=== PATIENT | male | born 1945 | race Caucasian/White ===

== ENCOUNTER 2024-11-05 13:20 | Outpatient (CLI) | payer OTHER, SELFPAY ==
--- NOTE | ~2024-11-05 | CT_ITS ---
EXAMINATION: CT LE LT wo con DATE: 11/05/2024 13:57 INDICATION: Unilateral primary osteoarthritis, left knee. TECHNIQUE: Computed tomography (CT) of the left lower limb was performed without intravenous contrast . Automated exposure control and iterative reconstruction technique were employed. The dose-length pr oduct was 1956.10 mGy-cm. COMPARISON: Left knee radiographs 11/02/2024 FINDINGS: There is an old healed fracture of left acetabulum. There is moderate posttraumatic osteoar thritis of left hip. Left knee demonstrates varus angulation. There is moderate osteoarthritis of med ial compartment and mild osteoarthritis of lateral and patellofemoral compartments. There is a small knee joint effusion. IMPRESSION: 1. Moderate left knee osteoarthritis. 2. Small left knee joint effusion. Reviewed, dictated and finalized at location A. EAU ANALYST
--- OUTSIDE RECORDS SUMMARY | 2024-11-05 13:41 | XMS_ITS | Referral Summary ---
Author Organization [facility] [address] [facility] lto Address [address] [place] [address] Care Team Providers Care Wellfield Technician Name Role Phone Forrest Frazier MD Unavailable [phone] Perry aCdena MD Primary Care Provider [phone] Encounters Date Type Department Care Team Description 10/01/2024 Telephone [facility] Primary Care at [address] [phone] Perry Cadena MD 10/01/2024 Telephone [facility] Primary Care at [address] [place] [phone] Perry Cadena MD Medication Request 09/29/2024 Telephone [facility] Primary Care at [address] [place] [phone] Perry Cadena MD Medical Question/Miscellaneous 09/24/2024 Orders Only [facility] Primary Care at [address] [place] [phone] Perry Cadena MD Primary osteoarthritis of left knee (Primary Dx); Left knee pain, unspecified chronicity 09/24/2024 12:30 PM VICE PRESIDENT OF MARKETING Office Visit [facility] Primary Care at [address] [place] [phone] Perry Cadena MD Primary hypertension (Primary Dx); Primary osteoarthritis of left knee; Stage 3a chronic kidney disease (HCC); Class 1 obesity due to excess calories with serious comorbidity and body mass index (BMI) of 33.0 to 33.9 in adult; Chronic pain of left knee; Mixed hyperlipidemia; History of pancreatitis; Need for hepatitis B screening test; Prostate cancer screening from Last 3 Months Allergies No known active allergies Medications multivitamin capsuleIndicat ions:Vitamin Deficiency Prevention Take 1 capsule by mouth every morning Active acetaminophen 500 mg capsuleIndicat ions:Pain Take 2 capsules (1,000 mg total) by mouth every 6 (six) hours 100 tablet 4 Active methocarbamoL (ROBAXIN) 750 mg tabletIndicati ons:Muscle Spasm Take 1 tablet (750 mg total) by mouth 3 (three) times a day 90 tablet 4 Active senna-docusate (PERICOLACE) 8.6-50 mgIndications: constipation Take 1 tablet by mouth 2 (two) times a day 60 tablet 4 Active Additional Information Patient taking differently:1 tablet oralAs needed, constipation, Indications: constipation, Reported on 09/24/2024 amLODIPine (NORVASC) 10 mg tabletIndicati ons:hypertensi on Take 1 tablet (10 mg total) by mouth daily 90 tablet 3 5 10/22/19 26 Active atorvastatin (LIPITOR) 10 mg tabletIndicati ons:hyperlipid emia Take 1 tablet (10 mg total) by mouth daily 90 tablet 3 5 Active hydroCHLOROthi azide (HYDRODIURIL) 25 mg tabletIndicati ons:Edema Take 1 tablet (25 mg total) by mouth daily 90 tablet 3 5 10/22/19 26 Active atorvastatin (LIPITOR) 10 mg tabletIndicati ons:hyperlipid emia Take 1 tablet (10 mg total) by mouth daily 90 tablet 3 4 10/22/19 25 Discontin ued(Reord er) amLODIPine (NORVASC) 10 mg tabletIndicati ons:hypertensi on Take 1 tablet (10 mg total) by mouth daily 90 tablet 4 4 10/22/19 25 Discontin ued(Reord er) hydroCHLOROthi azide (HYDRODIURIL) 25 mg tabletIndicati ons:Edema Take 1 tablet (25 mg total) by mouth daily 90 tablet 4 4 10/22/19 25 Discontin ued(Reord er) Active Problems Problem Noted Date Diagnosed Date Stage 3a chronic kidney disease 09/24/2024 Assessment & Plan (09/24/2024 12:53 PM VICE PRESIDENT OF MARKETING): Monitor cmp Has been stable Consider switching hctz for another medication preferably alma/arb Chemistry Lab Results Component Value Date SODIUM 140 05/19/2024 POTASSIUM 4.0 05/19/2024 CHLORIDE 100 05/19/2024 CO2 27 05/19/2024 ANIONGAP 13 05/19/2024 BUNSER 28 (H) 05/19/2024 CREATININE 1.33 (H) 05/19/2024 GLUCOSE 101 05/19/2024 CALCIUM 9.9 05/19/2024 BILITOT 0.5 05/19/2024 ALBUMIN 4.6 05/19/2024 GFRNAA 55 (L) 05/19/2024 ALKPHOS 101 05/19/2024 AST 31 05/19/2024 ALT 17 05/19/2024 PHOS 3.2 03/07/2024 MAGNESIUM 2.2 03/07/2024 Gfr as above, cr and bun at [facility] baseline ckd stage 3 Medicare annual wellness visit, subsequent 05/19 Assessment & Plan (05/19/2024 9:04 AM CDT): Focus of exam is preventative in nature. Reviewed immunizations, reviewed sun/skin cancer screening. Reviewed colon/prostate cancer screening. Reviewd fall prevnetion. CONtinue therapy to strengthen the left lower extreeimty and left shoulder. Nondisplaced fracture of ant erior wall of left acetabulum with routine healing 05/19/2024 Assessment & Plan (05/19/2024 9:04 AM CDT): Released by [employer] COntinue f/u with therapy and HEP. Chronic left shoulder pain 03/05/2024 Assessment & Plan (03/10/2024 9:06 AM CDT): #L shoulder pain - chronic L rotator cuff arthropathy - plain films negative for fracture or dislocation - encourage PT, OT - Ordered robaxin and lidocaine patches - Outpatient follow up with Orthopedic surgery team PRN. Closed fracture of anterior column of left acetabulum with routine healing 03/04/2024 Assessment & Plan (03/11/2024 8:04 AM CDT): Mechanism: slip on boat ramp L ABC acetabular fracture - non op plan for trial of nonoperative management. Ok for diet today. OTS will continue to follow for mobilization. 03/06 - 03/08: Ambulating with well controlled pain, working with PT/OT; medically ready for discharge; pending placement - 03/09: WBAT in LLE with walker -Discharging home with PT/OT home health. Follow up with Dr. Horne Orthopedic trauma 04/14/2024. Class 1 obesity due to exces s calories with serious comorbidity and body mass index (BMI) of 33.0 to 33.9 in adult 03/23/2021 Assessment & Plan (09/24/2024 12:30 PM VICE PRESIDENT OF MARKETING): Wt Readings from Last 3 Encounters: 09/24/24 104.3 kg (230 lb) 07/09/24 102.5 kg (226 lb) 05/19/24 102.3 kg (225 lb 8 oz) BMI Readings from Last 3 Encounters: 09/24/24 33.00 kg/m 07/09/24 32.43 kg/m 05/19/24 31.45 kg/m Not at goal of bmi <30 Continue diet and exercise BMI Follow-up includes: nutrition counseling and exercise counseling. Assessment & Plan (05/16/2021 9:03 AM CDT): Discussed healthy diet and importance of regular physical activity. Assessment & Plan (03/23/2021 1:19 PM CDT): Reviewed need to lose weight, reviewed health benefits. Reviewed recommendations for daily intake & activity 20-30 minutes/day. Discussed healthy diet and importance of regular physical activity. Has lost 20# w/diet changes implemented by dtr. Has stopped drinking vodka daily. Prostate cancer screening 03/23/2021 Assessment & Plan (05/19/2024 9:03 AM CDT): PSA stable. No change, no increased work of urination. NO change and will follow response. Assessment & Plan (03/23/2021 1:20 PM CDT): PSA ordered; will contact with results when received. History of pancreatitis 03/23/2021 Assessment & Plan (09/24/2024 12:46 PM VICE PRESIDENT OF MARKETING): Hx of ETOH Assessment & Plan (03/23/2021 1:20 PM CDT): Awaiting results from [facility]. Reviewed d/c summary brought by dtr Dixie. Has stopped ETOH intake. Has improved diet greatly. dtr Dixie doing shopping. Pain 1/10 at worst now. Great improvement. Osteoarthritis of knee 02/15/2020 Overview (02/15/2020): Added automatically from request for surgery [id number] Assessment & Plan (09/24/2024 12:53 PM VICE PRESIDENT OF MARKETING): Tylenol/ ibuprofen prn, follow up ortho Referral placed Assessment & Plan (04/28/2020 9:03 AM CDT): R knee replacement 02/2020. Doing PT exercises as instructed. Cannot tell any decrease in pain as of yet. Has f/u appt w/Dr Oseguera 05/13/20 at [facility]. Colonoscopy refused 10/29/2019 Assessment & Plan (10/29/2019 11:06 AM VICE PRESIDENT OF MARKETING): Refuses colonoscopy. Agreeable to cologuard. Mixed hyperlipidemia 10/28/2019 Assessment & Plan (09/24/2024 12:45 PM VICE PRESIDENT OF MARKETING): Lab Results Component Value Date CHOL 196 05/19/2024 CHOL 178 11/26/2023 CHOL 177 05/21/2023 POCCHOL 147 10/29/2019 Lab Results Component Value Date HDL 80 05/19/2024 HDL 76 11/26/2023 HDL 71 05/21/2023 POCHDL 50 10/29/2019 Lab Results Component Value Date LDLCALC 100 05/19/2024 LDLCALC 87 11/26/2023 LDLCALC 88 05/21/2023 POCLDL 75 10/29/2019 Lab Results Component Value Date TRIG 92 05/19/2024 TRIG 74 11/26/2023 TRIG 92 05/21/2023 POCTRIG 116 10/29/2019 Lab Results Component Value Date POCCHDLR 3.0 10/29/2019 Lab Results Component Value Date POCNONHDL 98 10/29/2019 Lab Results Component Value Date POCCHLPL 147 10/29/2019 At goal Cont current regimen of lipitor 10 mg every day Assessment & Plan (05/19/2024 9:03 AM CDT): Stable on atorvastatin. NO new myalgias/arthalgias. Assessment & Plan (03/05/2024 3:18 PM CDT): #HLD - resumed lipitor Assessment & Plan (05/16/2021 9:00 AM CDT): 04/26/21 TC 192 HDL 44 LDL 123 HDL 44 TRG 123 LDL increased after stopping atorvastatin. Patient liver function significantly improved following cessation of alcohol. Will resume atorvastatin given ASCVD risk of 25%. Patient to repeat lipid panel and cmp in 3 months. Assessment & Plan (03/23/2021 1:17 PM CDT): 04/09/19 OG=554 HDL=65 TG=86 LDL=97 TC/HDL=2.8 10/29/19 ZI=259 HDL=50 UF=944 LDL=75 TC/HDL=3.0 10/27/20 KG=352 HDL=69 XA=415 LDL=98 TC/HDL=3.0 Atorvastatin 10mg temporarily on hold d/t pancreatitis & fatty liver found while at [facility] ([facility] dtr will resume his atorvastatin if hepatic functions WNL. Will recheck lipid panel at next appt (physical) Assessment & Plan (10/31/2020 8:57 AM VICE PRESIDENT OF MARKETING): 04/09/19 SU=279 HDL=65 TG=86 LDL=97 TC/HDL=2.8 10/29/19 QI=902 HDL=50 EY=472 LDL=75 TC/HDL=3.0 GLU=89 10/27/20 BD=433 HDL=69 TX=979 LDL=98 TC/HDL=3.0 Reviewed past lipid panels. LDL had climbed last year to upper end of normal. Reviewed labs from 10/27/20. Copy given to Mr Andrews. Patient should focus on limiting bad fats in the diet and using exercise as a way to improve the lipid status. Secondary prevention. Reviewed medications. Denies any statin Ses. Reviewed diet/exercise recommendations. Reviewed red flags. Assessment & Plan (04/27/2020 10:40 PM CDT): We will check labs and make adjustments to medications as needed. Patient should focus on limiting bad fats in the diet and using exercise as a way to improve the lipid status. Secondary prevention. Reviewed medications. Lipid panel ordered; will call w/results when rec'd. Denies any statin Ses. Reviewed diet/exercise recommendations. Reviewed red flags. Assessment & Plan (10/29/2019 11:05 AM VICE PRESIDENT OF MARKETING): 04/09/19 UQ=285 HDL=65 TG=86 LDL=97 TC/HDL=2.8 10/29/19 RJ=234 HDL=50 UE=151 LDL=75 TC/HDL=3.0 GLU=89 Copy of results as well as written explanations given to Mr Andrews. Improvement in total cholesterol & LDL since 03/2019. Patient should focus on limiting bad fats in the diet and using exercise as a way to improve the lipid status. Secondary prevention. Reviewed medications. Denies any statin Ses. Reviewed diet/exercise recommendations. Reviewed red flags. Primary hypertension 10/28/2019 Assessment & Plan (09/24/2024 12:30 PM VICE PRESIDENT OF MARKETING): BP Readings from Last 3 Encounters: 09/24/24 128/80 07/09/24 131/80 05/19/24 136/86 Vitals BP 128/80 (BP Location: Left arm, Patient Position: Sitting) Pulse 65 Resp 16 Ht 177.8 cm (5' 10 ) Wt 104.3 kg (230 lb) SpO2 98% BMI 33.00 kg/m Lab Results Component Value Date POTASSIUM 4.0 05/19/2024 At goal at this time Continue hctz 25 mg every day, norvac 10 mg every day Assessment & Plan (05/19/2024 9:03 AM CDT): Stable on amlopdine and HCTZ. No chest pains/pressures/palptiations. No increased work of breathing. Assessment & Plan (03/10/2024 9:07 AM CDT): #HTN - resumed amlo, holding HCTZ - says he no longer takes ASA 03/10 resuming HCTZ, tolerating a regular diet. Assessment & Plan (05/16/2021 9:01 AM CDT): Excellent control on BP today. Will continue to monitor. Assessment & Plan (03/23/2021 1:18 PM CDT): The blood pressure is under good control. Ideally it should be under 130/80. Continue medications without adjustment. Continue efforts to eat well (4-5 fruits and veggies) daily and exercise for about 30 min nearly every day. Watch salt intake, keeping to less than 2000mg per day. Limit alcohol. Include strategies to cope with stress. Labs ordered today; will contact w/results once received. Will change back to amlodipine/benazepril. Had been switched in hospital d/t elevated LFTs/fatty liver (awaiting lab results). Assessment & Plan (10/31/2020 8:57 AM VICE PRESIDENT OF MARKETING): The blood pressure is under good control. Ideally it should be under 130/80. Continue medications without adjustment. Continue efforts to eat well (4-5 fruits and veggies) daily and exercise for about 30 min nearly every day. Watch salt intake, keeping to less than 2000mg per day. Limit alcohol. Include strategies to cope with stress. Reviewed labs from 10/27/20. Copy given to Mr Andrews. Assessment & Plan (04/27/2020 10:40 PM CDT): The blood pressure is under good control. Ideally it should be under 130/80. Continue medications without adjustment. Continue efforts to eat well (4-5 fruits and veggies) daily and exercise for about 30 min nearly every day. Watch salt intake, keeping to less than 2000mg per day. Limit alcohol. Include strategies to cope with stress. Assessment & Plan (10/29/2019 11:05 AM VICE PRESIDENT OF MARKETING): No changes at this time. Does not check BP at home. The blood pressure is under good control. Ideally it should be under 130/80. Continue medications without adjustment. Continue efforts to eat well (4-5 fruits and veggies) daily and exercise for about 30 min nearly every day. Watch salt intake, keeping to less than 2000mg per day. Limit alcohol. Labs ordered today; will contact w/results once received. Chronic pain of both knees 07/15/2019 Assessment & Plan (05/16/2021 8:54 AM CDT): Right knee replacement 02/2020, has had ongoing pain. Does not want additional surgery for scar tissue removal. Continues home exercise and feels pain is manageable. Advised to follow up with Ortho. Assessment & Plan (10/29/2019 11:03 AM VICE PRESIDENT OF MARKETING): Sees Dr Steward yearly for knee injections. Reports R knee [id number]. Declines knee replacements. Takes aleve as needed. Resolved Problems Problem Noted Date Diagnosed Date Resolved Date Class 1 obesity due to exces s calories with serious comorbidity and body mass index (BMI) of 33.0 to 33.9 in adult 05/19/2024 09/24/2024 Assessment & Plan (05/19/2024 9:04 AM CDT): Encourage 150min/week aerobic exercise. Healthy food chcoies. Obesity (BMI 30.0-34.9) 05/19/2024/0 05/2025 Assessment & Plan (05/19/2024 9:05 AM CDT): As above. ALEXANDER (acute kidney injury) 03/05/2024 Assessment & Plan (03/08/2024 10:32 AM CDT): #ALEXANDER - Cr 1.37 - no documented history of CKD, although baseline Cr in last 1y 1.5-1.7 - 03/07: Cr 1.24 - 03/08: Cr 1.28 - stable and close to baseline, will stop checking labs Fall 03/05/2024 09/24/2024 Assessment & Plan (03/05/2024 3:18 PM CDT): #fall - mechanical, no LOC, did not strike head - no CT head or cspine currently indicated - no syncopal workup ordered Discharge planning issues 03/05/2024 Assessment & Plan (03/11/2024 10:18 AM CDT): 03/08: PT/OT recommending inpatient rehab. Patient is medically stable for discharge, SW/CM updated. Discharge pending facility acceptance 03/10: Patient is medically stable for discharge, SW/CM updated. Discharge pending insurance authorization Patient is medically stable for discharge, SW/CM updated. Discharge pending insurance appeal. 03/11 Discharging to SNF today. BMI 34.0-34.9,adult 10/31/2020 03/23/20 Assessment & Plan (10/31/2020 8:45 AM VICE PRESIDENT OF MARKETING): Reviewed need to lose weight, reviewed health benefits. Reviewed recommendations for daily intake & activity 20-30 minutes/day. Discussed healthy diet and importance of regular physical activity. BMI 30.0-30.9,adult 04/28/2020 10/31/19 Assessment & Plan (04/28/2020 9:01 AM CDT): Reviewed need to lose weight, reviewed health benefits. Reviewed recommendations for daily intake & activity 20-30 minutes/day. Discussed healthy diet and importance of regular physical activity. Has been increasing activity; doing PT exercises for recent R knee replacement. Aftercare following right kn ee joint replacement surgery 04/15/2020 09/24/2024 Encounter for medical examin mala to establish care 10/29/2019 04/27/2020 Assessment & Plan (10/29/2019 11:06 AM VICE PRESIDENT OF MARKETING): -reviewed screening guidelines: no family history of breast or colon cancer. -Colonoscopy refused. Agreeable to cologuard. -UTD on immunizations. -discussed diet/exercise: daily recommendations of 20-30 minutes physical activity daily, watch fat/sugar intake. -denies safety/violence. Wears seatbelt. Aware to not text/talk and drive. -does not smoke but does drink ETOH in small amt daily. -lives at home with supportive family (granddtr). Colon cancer screening 10/29/201910/31 Assessment & Plan (10/29/2019 11:06 AM VICE PRESIDENT OF MARKETING): Refuses colonoscopy; aware that it is gold standard for CRC screening. Agreeable to cologuard. Aware that cologuard kit will be mailed with directions. To call if no results rec'd 1-2 weeks after kit mailed back for completion of test. BMI 33.0-33.9,adult 10/29/2019 04/28/20 Assessment & Plan (10/29/2019 10:34 AM VICE PRESIDENT OF MARKETING): Reviewed need to lose weight, reviewed health benefits. Reviewed recommendations for daily intake & activity 20-30 minutes/day. Discussed healthy diet and importance of regular physical activity. Arthritis 10/28/2019 10/29/2019 Immunizations Immunization Administration Dates Next Due Influenza, Quad, Adjuvantate d, Intramuscular 07/04/2023,06/07/2022 Influenza, Quadrivalent, Hig h Dose, Preservative Free, Intrr 07/04/2021,07/02/2020 Influenza, Trivalent, Adjuva nted, Intramuscular 07/09/2019 Influenza, Trivalent, High D ose, Split, Preservative Free, Intramuscular 06/05/2024,07/04/2021,07/19/2016,07/12 Influenza, Trivalent, IM (MDV) 9,06/26/2018,07/20/2016,06/23 Influenza, Unspecified 05/19/2024(Deferr ed: Patient Refused),11/26/2023(Deferred: Patient Refused),05/21/2023(Deferred: Patient Refused),09/16/2022(Deferred: Patient Refused),09/16/2022(Deferred: Patient Refused),06/20/2020,06/23/2014 Pfizer SARS-CoV-2 Monovalent Vaccination (12+ Yrs) PURPLE 06/09/2021,10/17/2020,10/17/2020 Pneumococcal Conjugate PCV 13 10/08/2017 Pneumococcal Conjugate Pcv20 06/05/2024 Pneumococcal Polysaccharide PPV23 04/09/2019,09/2008 Tetanus Toxoid, Unspecified 11/14/2010 ZOSTER LIVE 06/29/2011 ZOSTER Recombinant 03/28/2021,10/15/2019 Social History Tobacco Use Types Packs/Day Years Used Date Smoking Tobacco: Never Smokeless Tobacco: Never Tobacco Cessation:Counseling Given: Not Answered Alcohol Use Standard Drinks/Week Comments Yes 28 (1 standard drink = 0.6 oz pu re alcohol) very little OASIS D0700: Social Isolation Answer Da te Recorded Frequency of experiencing loneliness or isolatio n Never 04/11/2024 OASIS A1250: Transportation Answer Date Recorded Lack of Transportation (Medical) No 04/11/2024 Lack of Transportation (Non-Medical) No 04/11/2024 Patient Unable or Declines to Respond No 04/11/2024 OASIS B1300: Health Literacy Answer Faustino e Recorded Frequency of needing help to read materials from doctor or pharmacy Never 04/11/2024 [facility] Utilities Answer Date Recorded In the past 12 months has e [employer], gas, oil, or water [employer] threatened to shut off services in your home? No 03/12/2024 Humiliation, Afraid, Rape, and Kick questionnair e Answer Date Recorded Within the last year, have y ou been afraid of your partner or ex-partner? No 03/04/2024 Within the last year, have y ou been humiliated or emotionally abused in other ways by your partner or ex-partner? No Within the last year, have y ou been kicked, hit, slapped, or otherwise physically hurt by your partner or ex-partner? No 03/04/2024 Within the last year, have y ou been raped or forced to have any kind of sexual activity by your partner or ex-partner? No 03/04/2024 Social Connection and Isolat ion Panel [NHANES] Answer Date Recorded In a typical week, how many times do you talk on the phone with family, friends, or neighbors? Three times a week 03/12/2024 How often do you get togethe r with friends or relatives? Three times a week 03/12/2024 How often do you attend chur ch or jewish services? More than 4 times per year 03/12/2024 Do you belong to any clubs o r organizations such as yazidism groups, unions, fraternal or athletic groups, or school groups? Yes 03/12/2024 How often do you attend meet ings of the clubs or organizations you belong to? More than 4 times per year 03/12/2024 Are you , , di vorced, , never , or living with a partner? 03/12/2024 AUDIT-C Answer Date Recorded Q1: How often do you have a drink containing alcohol? 4 or more times a week 03/04/2024 Q2: How many drinks containi ng alcohol do you have on a typical day when you are drinking? 1 or 2 Q3: How often do you have si x or more drinks on one occasion? Never 03/04/2024 Overall Financial Resource Strain (CARDIA) Answe r Date Recorded How hard is it for you to pa y for the very basics like food, housing, medical care, and heating? Not very hard 03/12/2024 PHQ-2 Answer Date Recorded PHQ-2 Total Score (If total score is 3 or more points, staff should administer the PHQ-9) 0 09/24/2024 [facility] of Occupat ional Health - Occupational Stress Questionnaire Answer Date Recorded Do you feel stress - tense, restless, nervous, or anxious, or unable to sleep at night because your mind is troubled all the time - these days? To some extent 03/04/2024 Exercise Vital Sign Answer Date Recorde d On average, how many days pe r week do you engage in moderate to strenuous exercise (like a brisk walk)? 7 days 03/04/2024 On average, how many minutes do you engage in exercise at this level? 120 min 03/04/2024 Hunger Vital Sign Answer Date Recorded Within the past 12 months, y ou worried that your food would run out before you got the money to buy more. Never true 03/12/20 24 Within the past 12 months, t he food you bought just didn't last and you didn't have money to get more. Never true 03/12/2024 PRAPARE - Transportation Answer Date Re corded In the past 12 months, has l ack of transportation kept you from medical appointments or from getting medications? No 02/15 In the past 12 months, has l ack of transportation kept you from meetings, work, or from getting things needed for daily living? No 03/12/2024 Housing Stability Vital Sign Answer Faustino e Recorded In the last 12 months, was t here a time when you were not able to pay the mortgage or rent on time? No 03/12/2024 In the past 12 months, how m any times have you moved where you were living? 0 03/12/2024 At any time in the past 12 m [facility], were you homeless or living in a usp (including now)? No 03/12/2024 Personal Safety Answer Date Recorded Have you ever been in or are you currently in a harmful physical or emotional relationship or is someone making you feel afraid or unsafe? Denies 03/05/2024 Sex and Gender Information Value Date Recorded Sex Assigned at Not on file Legal Sex Male 1:36 AM VICE PRESIDENT OF MARKETING Gender Identity Not on file Sexual Orientation Not on file Last Filed Vital Signs Vital Sign Reading Time Taken Comments Blood Pressure 128/80 09/24/2024 12:23 PM [employer]ICE PRESIDENT [employer]ETING Pulse 65 09/24/2024 12:23 PM [employer]ICE [employer]ETING Temperature 36.7 C (98.1 F) 05/19/2024 8:39 AM CDT Respiratory Rate 16 09/24/2024 12:23 PM [employer]ICE PRESIDENT [employer]ETING Oxygen Saturation 98% 09/24/2024 12:23 PM VICE PRESIDENT OF MARKETING Inhaled Oxygen Concentration - - Weight 104.3 kg (230 lb) 09/24/2024 12:23 PM VICE PRESIDENT OF MARKETING Height 177.8 cm (5' 10 ) 09/24/2024 12:23 PM [employer]ICE PRESIDENT [employer] MARKETING Body Mass Index 33 09/24/2024 12:23 PM VICE PRESIDENT OF MARKETING Plan of Treatment Not on file Goals Goal Patient Goal Type Associated Problems Recent Progress Patient-Stated? Author TOAN General Goal - Patient establishes care with [facility] Care Management On track(2023 1:10 PM CDT) Trixie Burt, RN Note: Problem: Lack of [facility] communication Interventions: - Provide coordination between [facility] company and patient. - Ensure [facility] has appropriate referral and orders to establish care with patient. - Follow up with patient to ensure initial visit was completed by [facility] and that a [facility] plan has been started. [facility] [place], CHERISE Note: Patient will establish a comfort-function goal and identify the pain level that will allow the patient to perform desired activities and achieve an acceptable quality of life. Medical Devices Implanted Type Area Hired Worker Device Identifier Shelf Expiration Date Model / Serial / Lot [employer] [id number] Persona 12mm Cruciate Retain Knee 8-11 Insert Articular Vivacit-E Latex Free - [id number] Implanted:Qty: 1 on 03/09/2020 by Carter Oseguera MD at [facility] Right: Knee [employer] [id number] 2 06/15/2023 [id number] / / [id number] [employer] [id number] Persona 2 Peg Knee Right H Baseplate Tibial Trabecular Metal - [id number] Implanted:Qty: 1 on 03/09/2020 by Carter Oseguera MD at [facility] Right: Knee [employer] [id number] 2 05/16/2029 [id number] / / [id number] [employer] [id number] Persona Cruciate Retaining Knee Right 9 Standard Component - [id number] Implanted:Qty: 1 on 03/09/2020 by Carter Oseguera MD at [facility] Right: Knee [employer] [id number] 2 11/13/2029 [id number] / / [id number] Insurance HEALTHCARE [facility] [place] [address] HEALTHCARE Advance Directives For more information, please contact: [phone] * Full Code (Latest Code Status on File) Date Activated Date Inactivated Comments 03/04/2024 8:27 PM 03/11/2024 4:18 PM * Full Code Date Activated Date Inactivated Comments 03/09/2020 6:13 PM 03/10/2020 4:08 PM Care Teams Wellfield Technician Relationship Specialty Start Date End Date Forrest Frazier MD [address] [address] PCP - Essence Attributed PCP 09/16/19 Perry Cadena MD [address] [address] PCP - General Family Medicine 09/24/24
--- OUTSIDE RECORDS SUMMARY | 2024-11-05 13:41 | XMS_ITS | Patient Health Summary ---
Author Organization [facility] Address [address] [place] [address] Care Team Providers Care Appian Bpm Developer Name Role Phone Florentin Antony MD Primary Care Provider [phone] Note from [facility],non-owned Affiliates and Associated Physician Practices is amultiple site organization consisting of ambulatory clinics and hospital sitesin [place], [place] and [place]. This disclosure is being madepursuant to the Care Everywhere program and may not contain all information available regarding this patient. Last updated 18.[facility] Allergies No known active allergies Medications * Be aware that medications may not be up to date on this document. Alwaysverify current medications with the patient. * atorvastatin (LIPITOR) 10 MG tablet(Started 10/02/2017) Take 10 mg by mouth * amLODIPine besy-benazepril 10-40 MG(Started 01/15/2018) TAKE 1 CAPSULE BY MOUTH EVERY DAY * aspirin (ASPIRIN) 325 MG tablet Take 325 mg by mouth once daily * benzonatate (TESSALON) 200 MG capsule(Started 09/13/2018) Take 1 capsule by mouth 3 times daily as needed for Cough Social History Tobacco Use Types Packs/Day Years Used Date Smoking Tobacco: Never Assessed Sex and Gender Information Value Date Recorded Sex Assigned at Not on file Gender Identity Not on file Sexual Orientation Not on file Last Filed Vital Signs Vital Sign Reading Time Taken Comments Blood Pressure 140/82 09/13/2018 11:21 AM DIETITIAN CONSULTANT Pulse 89 09/13/2018 11:21 AM DIETITIAN CONSULTANT Temperature 37.2 C (99 F) 09/13/2018 11:21 AM DIETITIAN CONSULTANT Respiratory Rate - - Oxygen Saturation 96% 09/13/2018 11:21 AM DIETITIAN CONSULTANT Inhaled Oxygen Concentration - - Weight 110.7 kg (244 lb) 09/13/2018 11:21 AM DIETITIAN CONSULTANT Height 180.3 cm (5' 11 ) 09/13/2018 11:21 AM DIETITIAN CONSULTANT Body Mass Index 34.03 09/13/2018 11:21 AM DIETITIAN CONSULTANT Care Teams Appian Bpm Developer Relationship Specialty Start Date End Date Florentin Antony MD PCP - General Internal Medicine 09/13/18
--- OUTSIDE RECORDS SUMMARY | 2024-11-05 13:41 | XMS_ITS | Referral Summary ---
Author Organization [facility] Address [address] [place] [address] Care Team Providers Care Keno Manager Name Role Phone Florentin Antony MD Primary Care Provider [phone] Source Comments [facility],non-owned Affiliates and Associated Physician Practices is amultiple site organization consisting of ambulatory clinics and hospital sitesin [place], [place], [place]. This disclosure is being madepursuant to the Care Everywhere program and may not contain all information available regarding this patient. Last updated 18.[facility] Allergies No known active allergies Medications * Be aware that medications may not be up to date on this document. Alwaysverify current medications with the patient. Medication Sig Dispensed Refills Start Date End Date Status atorvastatin (LIPITOR) 10 MG tablet Take 10 mg by mouth 10/02/2017 Active amLODIPine besy-benazepril 10-40 MG TAKE 1 CAPSULE BY MOUTH EVERY DAY 01/15/2018 Active aspirin (ASPIRIN) 325 MG tablet Take 325 mg by mouth once daily Active benzonatate (TESSALON) 200 MG capsule Take 1 capsule by mouth 3 times daily as needed for Cough 30 capsule 09/13/2018 Active Social History Tobacco Use Types Packs/Day Years Used Date Smoking Tobacco: Never Assessed Sex and Gender Information Value Date Recorded Sex Assigned at Not on file Gender Identity Not on file Sexual Orientation Not on file Last Filed Vital Signs Vital Sign Reading Time Taken Comments Blood Pressure 140/82 09/13/2018 11:21 AM SEISMOGRAPH RECORDER Pulse 89 09/13/2018 11:21 AM SEISMOGRAPH RECORDER Temperature 37.2 C (99 F) 09/13/2018 11:21 AM SEISMOGRAPH RECORDER Respiratory Rate - - Oxygen Saturation 96% 09/13/2018 11:21 AM SEISMOGRAPH RECORDER Inhaled Oxygen Concentration - - Weight 110.7 kg (244 lb) 09/13/2018 11:21 AM SEISMOGRAPH RECORDER Height 180.3 cm (5' 11 ) 09/13/2018 11:21 AM SEISMOGRAPH RECORDER Body Mass Index 34.03 09/13/2018 11:21 AM SEISMOGRAPH RECORDER Plan of Treatment Not on file Care Teams Keno Manager Relationship Specialty Start Date End Date Florentin Antony MD PCP - General Internal Medicine 09/13/18
--- OUTSIDE RECORDS SUMMARY | 2024-11-05 13:41 | XMS_ITS | Clinical Summary ---
Author Organization [facility] Address [address] [address] Phone Care Team Providers Care Dextrine Mixer Name Role Phone Forrest Frazier MD Primary Care Provider [phone] [phone] Allergies No known active allergies Medications aspirin 325 MG Tablet Take 325 mg by mouth. Active fluticasone (FLONASE) 50 MCG/ACT Suspension 1-2 Sprays by Nasal route daily. Use in each nostril as directed. 1 Bottle 1 02/27/2019 Active atorvastatin (LIPITOR) 10 MG Tablet TAKE 1 TABLET BY MOUTH EVERY DAY 90 Tab 1 09/15/2019 Active amLODIPine Besy-Benazepril HCl 10-40 MG Capsule Take 1 Cap by mouth daily. 30 Cap 03/29/2020 Active Active Problems Problem Noted Date Diagnosed Date Hypertension, essential Hyperlipidemia Arthritis Immunizations Immunization Administration Dates Next Due Covid-19, Mrna, Lnp-s, Pf, 3 0 Mcg/0.3 Ml Dose (Clearwave) 11/14/2020,10/17/2020 Influenza Vaccine greater than 3 yrs 06/29/2019, 06/26/2018,07/20/2016 Influenza, Seasonal, Injectable, Undefined 06/23 Influenza, high-dose, trivalent, PF 07/12/2015 Pneumococcal Vaccine - 13 Valent 10/08/2017 Pneumococcal Vaccine Adult - 23 Valent 9,04/16/2009 Tetanus Toxoid, Unspecified Formulation 11/15/19 11 Zoster Vaccine Recombinant 10/15/2019 Zoster Vaccine, live 06/29/2011 Family History Medical History Relation Name Comments Heart Attack Father Hypertension Mother Relation Name Status Comments Father Mother Social History Tobacco Use Types Packs/Day Years Used Date Smoking Tobacco: Never Smokeless Tobacco: Never Tobacco Cessation:Counseling Given: Yes Alcohol Use Standard Drinks/Week Comments Yes 0 (1 standard drink = 0.6 oz pur e alcohol) PHQ-2 Answer Date Recorded PHQ-2 Score 0 06/02/2019 Sex and Gender Information Value Date Recorded Sex Assigned at Not on file Legal Sex Male 10:26 PM CDT Gender Identity Not on file Sexual Orientation Not on file Last Filed Vital Signs Vital Sign Reading Time Taken Comments Blood Pressure 112/78 04/09/2019 9:40 AM CDT Pulse 71 04/09/2019 9:40 AM CDT Temperature 37.1 C (98.7 F) 04/09/2019 9:40 AM CDT Respiratory Rate 18 02/27/2019 3:22 PM CDT Oxygen Saturation 97% 04/09/2019 9:40 AM CDT Inhaled Oxygen Concentration - - Weight 110.7 kg (244 lb) 04/09/2019 9:40 AM CDT Height 180.3 cm (5' 11 ) 04/09/2019 9:40 AM CDT Body Mass Index 34.03 04/09/2019 9:40 AM CDT Plan of Treatment Health Maintenance Due Date Last Done Comments Hepatitis C Virus (HCV) Screening 1945 TdaP Immunization 1945 Zoster Immunization (3 of 3) 12/10/2019 10/15/2019, 06/29/2011 Respiratory Syncytial Virus (RSV) Immunization (Adult) (1 - 1-dose 75+ series) 2021 Influenza Immunization (#1) 05/17/202406/16, 06/20/2020, 07/09/2019, Additional history exists SARS-COV-2 Immunization (2023- season) 2024 06/09/2021, 11/14/2020, 10/17/2020 Pneumococcal Immunization (50+ years) Completed 04/09/2019, 10/08/2017, 04/16/2009 Pneumococcal Immunization Combined Discontinued 04/09/2019, 10/08/2017, 04/16/2009 Hepatitis B Immunization Aged Out No longer eligible based on patient's age to complete this topic Meningococcal Immunization (ACWY) Aged Out No longer eligible based on patient's age to complete this topic Rotavirus Immunization Aged Out No lo nger eligible based on patient's age to complete this topic Care Teams Dextrine Mixer Relationship Specialty Start Date End [place] [address] PCP - General Internal Medicine 03/06/21
--- OUTSIDE RECORDS SUMMARY | 2024-11-05 13:41 | XMS_ITS | Clinical Summary ---
Author Organization [facility] [employer] [facility] [employer] Address [address] [place] [place] [address] Care Team Providers Care Director Of Primary Name Role Phone Florentin Antony MD Primary Care Provider [phone] [facility] [employer],non-owned Affiliates and Associated Physician Practices is amultiple site organization consisting of ambulatory clinics and hospital sitesin [place], [place], [place] and [place]. This disclosure is being madepursuant to the Care Everywhere program and may not contain all information available regarding this patient. Last updated 18.[employer] [facility] [employer] [facility] [employer] Allergies No known active allergies Medications * [...] Comments Blood Pressure 140/82 09/13/2018 11:21 AM SPOUTER Pulse 89 09/13/2018 11:21 AM SPOUTER Temperature 37.2 C (99 F) 09/13/2018 11:21 AM SPOUTER Respiratory Rate - - Oxygen Saturation 96% 09/13/2018 11:21 AM SPOUTER Inhaled Oxygen Concentration - - Weight 110.7 kg (244 lb) 09/13/2018 11:21 AM SPOUTER Height 180.3 cm (5' 11 ) 09/13/2018 11:21 AM SPOUTER Body Mass Index 34.03 09/13/2018 11:21 AM SPOUTER Plan of Treatment Health Maintenance Due Date Last Done Comments HEPATITIS C SCREENING 04/24/1963 DTAP/TDAP/TD VACCINES (1 - Tdap) 1965 PNEUMOCOCCAL VACCINE 50+ (1 of 1 - PCV) 1996 ZOSTER VACCINE (1 of 2) 1996 Respiratory Syncytial Virus (RSV) Vaccine Pt: or over 60 yrs (1 - 1-dose 75+ series) 2021 COVID-19 VACCINE ( - 2023-2 5 season) 2024 INFLUENZA VACCINE (#1) 2024 8, 07/20/2016, 07/12/2015 DEPRESSION SCREENING 09/16/2024 HEPATITIS B VACCINE Aged Out No longe r eligible based on patient's age to complete this topic HIB VACCINE Aged Out No longer eligi ble based on patient's age to complete this topic HPV VACCINE Aged Out No longer eligi ble based on patient's age to complete this topic MENINGOCOCCAL (Group B) VACCINE Aged Out No longer eligible b ased on patient's age to complete this topic MENINGOCOCCAL VACCINE Aged Out No gabbi fatoumata eligible based on patient's age to complete this topic Care Teams Director Of Primary Relationship Specialty Start Date End Date Florentin Antony MD PCP - General Internal Medicine 09/13/18
--- OUTSIDE RECORDS SUMMARY | 2024-11-05 13:41 | XMS_ITS | Clinical Summary ---
Author Organization [facility] [place] [address] [facility] lto Address [address] [place] [address] Care Team Providers Care Emergency Dispatch Operator Name Role Phone Forrest Frazier MD Unavailable [phone] Perry Cadena MD Primary Care Provider Allergies No known active allergies Medications multivitamin [...] 09/24/2024 Assessment & Plan (09/24/2024 12:53 PM GRIP WRAPPER): Monitor cmp Has been stable Consider switching [...] Gfr as above, cr and bun at [facility] baseline ckd stage 3 Medicare annual [...] Plan (05/19/2024 9:04 AM CDT): Released by [employer] COntinue f/u with therapy and HEP. Chronic [...] 03/23/2021 Assessment & Plan (09/24/2024 12:30 PM GRIP WRAPPER): Wt Readings from Last 3 Encounters: 09/24/24 [...] 03/23/2021 Assessment & Plan (09/24/2024 12:46 PM GRIP WRAPPER): Hx of ETOH Assessment & Plan (03/23/2021 1:20 PM CDT): Awaiting results from [facility]. Reviewed d/c summary brought by dtr [facility]ie. Has stopped ETOH intake. Has improved diet greatly. [facility]tr [facility] doing shopping. Pain 1/10 at worst now. Great improvement. Osteoarthritis of knee 02/15/2020 Overview (02/15/2020): Added automatically from request for surgery [id number] Assessment & Plan (09/24/2024 12:53 PM GRIP WRAPPER): Tylenol/ ibuprofen prn, follow up ortho Referral placed Assessment & Plan (04/28/2020 9:03 AM CDT): R knee replacement 02/2020. Doing PT exercises as instructed. Cannot tell any decrease in pain as of yet. Has f/u appt w/Dr Oseguera 05/13/20 at [facility]. Colonoscopy refused 10/29/2019 Assessment & Plan (10/29/2019 11:06 AM GRIP WRAPPER): Refuses colonoscopy. Agreeable to cologuard. Mixed hyperlipidemia 10/28/2019 Assessment & Plan (09/24/2024 12:45 PM GRIP WRAPPER): Lab Results Component Value Date CHOL 196 [...] & Plan (03/23/2021 1:17 PM CDT): 04/09/19 IY=677 HDL=65 TG=86 LDL=97 TC/HDL=2.8 10/29/19 RO=052 HDL=50 VL=647 LDL=75 TC/HDL=3.0 10/27/20 IR=071 HDL=69 WP=734 LDL=98 TC/HDL=3.0 Atorvastatin 10mg temporarily on hold d/t pancreatitis & fatty liver found while at [facility] ([facility] dtr will resume his atorvastatin if hepatic functions WNL. Will recheck lipid panel at next appt (physical) Assessment & Plan (10/31/2020 8:57 AM GRIP WRAPPER): 04/09/19 LD=744 HDL=65 TG=86 LDL=97 TC/HDL=2.8 10/29/19 FQ=286 HDL=50 DX=835 LDL=75 TC/HDL=3.0 GLU=89 10/27/20 LC=586 HDL=69 OP=288 LDL=98 TC/HDL=3.0 Reviewed past lipid panels. LDL [...] flags. Assessment & Plan (10/29/2019 11:05 AM GRIP WRAPPER): 04/09/19 ID=438 HDL=65 TG=86 LDL=97 TC/HDL=2.8 2/13/20 TA=246 HDL=50 DO=998 LDL=75 TC/HDL=3.0 GLU=89 Copy of results as [...] 10/28/2019 Assessment & Plan (09/24/2024 12:30 PM GRIP WRAPPER): BP Readings from Last 3 Encounters: 09/24/24 [...] results). Assessment & Plan (10/31/2020 8:57 AM GRIP WRAPPER): The blood pressure is under good control. [...] stress. Assessment & Plan (10/29/2019 11:05 AM GRIP WRAPPER): No changes at this time. Does not [...] Ortho. Assessment & Plan (10/29/2019 11:03 AM GRIP WRAPPER): Sees Dr Steward yearly for knee injections. Reports R knee [id number]. Declines knee replacements. Takes aleve as needed. Resolved Problems Problem Noted Date Diagnosed Date Resolved Date Class 1 obesity due to exces s calories with serious comorbidity and body mass index (BMI) of 33.0 to 33.9 in adult 05/19/2024 09/24/2024 Assessment & Plan (05/19/2024 9:04 AM CDT): Encourage 150min/week aerobic exercise. Healthy food chcoies. Obesity (BMI 30.0-34.9) 05/19/2024/05/2025 Assessment & Plan (05/19/2024 9:05 AM CDT): [...] 03/23/20 Assessment & Plan (10/31/2020 8:45 AM GRIP WRAPPER): Reviewed need to lose weight, reviewed health [...] 04/27/2020 Assessment & Plan (10/29/2019 11:06 AM GRIP WRAPPER): -reviewed screening guidelines: no family history of [...] 10/29/201910/31 Assessment & Plan (10/29/2019 11:06 AM GRIP WRAPPER): Refuses colonoscopy; aware that it is gold standard for CRC screening. Agreeable to cologuard. Aware that cologuard kit will be mailed with directions. To call if no results rec'd 1-2 weeks after kit mailed back for completion of test. BMI 33.0-33.9,adult 10/29/2019 04/28/20 Assessment & Plan (10/29/2019 10:34 AM GRIP WRAPPER): Reviewed need to lose weight, reviewed health benefits. Reviewed recommendations for daily intake & activity 20-30 minutes/day. Discussed healthy diet and importance of regular physical activity. Arthritis 10/28/2019 10/29/2019 Encounters Date Type Department Care Team Description 10/01/2024 Telephone [facility] Primary Care at [address] [phone] Perry Cadena MD 10/01/2024 Telephone [facility] Medical [facility] Primary Care at [address] [phone] Perry Cadena MD Medication Request 09/29/2024 Telephone [facility] Primary Care at [address] [phone] Perry Cadena MD Medical Question/Miscellaneous 09/24/2024 12:30 PM GRIP WRAPPER Office Visit [facility] Primary Care at [address] [phone] Perry Cadena MD Primary hypertension (Primary Dx); Primary osteoarthritis of left knee; Stage 3a chronic kidney disease (HCC); Class 1 obesity due to excess calories with serious comorbidity and body mass index (BMI) of 33.0 to 33.9 in adult; Chronic pain of left knee; Mixed hyperlipidemia; History of pancreatitis; Need for hepatitis B screening test; Prostate cancer screening 09/24/2024 Orders Only [facility] Medical [facility] Primary Care at [address] [phone] Perry Cadena MD Primary osteoarthritis of left knee (Primary Dx); Left knee pain, unspecified chronicity from Last 3 Months Immunizations Immunization Administration Dates Next Due Influenza, [...] 11/14/2010 ZOSTER LIVE 06/29/2011 ZOSTER Recombinant 03/28/2021,10/15/2019 Surgical History Surgery Date Site/Laterality Comments KNEE ARTHROCENTESIS Arthrocentesis of the right knee joint KNEE ARTHROSCOPY 2010 Right Arthroscopy knee Medical History Medical History Date Comments Hypertension Hypertension Arthritis Hyperlipidemia Family History Medical History Relation Name Comments Heart attack Father Hypertension Father Cancer Other 1 Family history of Cancer; Hypertension Other 2 Family history of Hypertension; Anesthesia problems Neg Hx Relation Name Status Comments Father Father passed i n per new patient paperwork Mother Alive Other 1 Other 2 Social History Tobacco Use Types Packs/Day Years [...] materials from doctor or pharmacy Never 04/11/2024 [facility] Utilities Answer Date Recorded In the past 12 months has e [employer] gas, oil, or water [employer] threatened to shut off services in your [...] 03/12/2024 How often do you attend chur or evangelical services? More than 4 times per year 03/12/2024 Do you belong to any clubs o r organizations such as baptist groups, unions, fraternal or athletic groups, or [...] staff should administer the PHQ-9) 0 09/24/2024 [facility] - Occupational Stress Questionnaire Answer Date Recorded [...] any time in the past 12 m [facility], were you homeless or living in a chcf (including now)? No 03/12/2024 Personal Safety Answer Date Recorded Have you ever been in or are you currently in a harmful physical or emotional relationship or is someone making you feel afraid or unsafe? Denies 03/05/2024 Sex and Gender Information Value Date Recorded Sex Assigned at Not on file Legal Sex Male 1:36 AM GRIP WRAPPER Gender Identity Not on file Sexual Orientation Not on file Obstetrics History Last Filed Vital Signs Vital Sign Reading Time Taken Comments Blood Pressure 128/80 09/24/2024 12:23 PM GRIP WRAPPER Pulse 65 09/24/2024 12:23 PM GRIP WRAPPER Temperature 36.7 C (98.1 F) 05/19/2024 8:39 AM CDT Respiratory Rate 16 09/24/2024 12:23 PM GRIP WRAPPER Oxygen Saturation 98% 09/24/2024 12:23 PM GRIP WRAPPER Inhaled Oxygen Concentration - - Weight 104.3 kg (230 lb) 09/24/2024 12:23 PM GRIP WRAPPER Height 177.8 cm (5' 10 ) 09/24/2024 12:23 PM GRIP WRAPPER Body Mass Index 33 09/24/2024 12:23 PM GRIP WRAPPER Plan of Treatment Health Maintenance Due Date Last Done Comments Hepatitis C Screening 1945 DTaP/Tdap/Td Vaccine ( - Tdap) 1956 Hepatitis B Screening 1963 Covid-19 Vaccine (2023-2 5 season) 2024 06/05/2024, 07/04/2023, 06/07/2022, Additional history exists Well Visit 65+ 05/19/2025 05/19/2024, 05/21/2023 Depression Screening 09/24/2025 09/24/2024, 05/19/2024, 11/26/2023, Additional history exists Fall Risk Assessment 09/24/2025 09/24/2024, 05/19/2024, 03/11/2024, Additional history exists Zoster Vaccine Completed 03/28/2021, 09/18, 06/29/2011 Influenza Vaccine Completed 06/05/2024, , 06/07/2022, Additional history exists Pneumococcal vaccine 65+ Completed 024, 04/09/2019, 10/08/2017, Additional history exists Colon Cancer Screening-DNA Stool Discontinued Goals Goal Patient Goal Type Associated Problems Recent Progress Patient-Stated? Author TOAN General Goal - Patient establishes care with [facility] ACO Care Management On track(2023 1:10 PM CDT) Trixie Burt, RN Note: Problem: Lack of [facility] communication Interventions: - Provide coordination between [facility] company and patient. - Ensure [facility] has appropriate referral and orders to establish care with patient. - Follow up with patient to ensure initial visit was completed by [facility] and that a [facility] plan has been started. -Pain Behavioral Health Lourdes Elmore RN Note: Patient will establish a comfort-function goal and identify the pain level that will allow the patient to perform desired activities and achieve an acceptable quality of life. Medical Devices Implanted Type Area Medical Records Supervisor Device Identifier Shelf Expiration Date Model / Serial / Lot [employer] [id number] Persona 12mm Cruciate Retain Knee 8-11 Insert Articular Vivacit-E Latex Free - [id number] Implanted:Qty: 1 on 03/09/2020 by Carter Oseguera MD at [facility] Right: Knee [employer] [id number] 2 06/15/2023 [id number] / / [id number] [employer] [id number] Persona 2 Peg Knee Right H Baseplate Tibial Trabecular Metal - [id number] Implanted:Qty: 1 on 03/09/2020 by Carter Oseguera MD at [facility] Right: Knee [employer] [id number] 2 05/16/2029 [id number] / / [id number] [employer] [id number] Persona Cruciate Retaining Knee Right 9 Standard Component - [id number] Implanted:Qty: 1 on 03/09/2020 by Carter Oseguera MD at [facility] Right: Knee [employer] [id number] 2 11/13/2029 [id number] / / [id number] [place] [address] [facility] Advance Directives For more information, please contact: [phone] * Full Code (Latest Code Status on File) Date Activated Date Inactivated Comments 03/04/2024 8:27 PM 03/11/2024 4:18 PM * Full Code Date Activated Date Inactivated Comments 03/09/2020 6:13 PM 03/10/2020 4:08 PM Care Teams Emergency Dispatch Operator Relationship Specialty Start Date End Date Forrest Frazier MD [address] [place] [id number] PCP - Essence Attributed PCP 09/16/19 Perry Cadena MD [address] [address] PCP - General Family Medicine 09/24/24
--- NOTE | 2024-11-05 14:02 | ECG_ITS ---
Test Date: 2024-11-05 14:25:10 Measurements Intervals Endeavor Rate: 66 P: 38 DC: 183 QRS: 31 QRSD: 92 T: 40 QT: 380 QTc: 401 Interpretive Statements SINUS RHYTHM WITH OCCASIONAL SUPRAVENTRICULAR PREMATURE COMPLEXES CANNOT R/O SEPTAL INFARCT, AGE INDETERMINATE BORDERLINE ST-T WAVE ABNORMALITY- INFERIOR LEADS BASELINE ARTIFACT- I, II, III, AVR, AVL, AVF ABNORMAL ECG No previous ECG available for comparison Electronically Signed On 11-05-2024 14:39:33 [employer]OC PLANS INTELLIGENCE OFFICER by Nikko Boyd D.O.
[2024-11-05 15:08] LABS: Albumin Level 4.6 g/dL (3.5-5.1); Estimated Glomerular Filt Rate 46
[2024-11-05 15:20] LABS: Hematocrit 43.7 % (42.0-52.0); Hemoglobin 14.5 g/dL (14.0-18.0)
== END 2024-11-05 13:21 | disposition home or self-care (01) ==
PROVIDERS: PCP Family Medicine; Visit Provider Orthopaedic Surgery
DX: M17.12 Unilateral primary osteoarthritis, left knee (principal); N18.31 Chronic kidney disease, stage 3a; I12.9 Hypertensive chronic kidney disease with stage 1 through stage 4 chronic kidney disease, or unspecified chronic kidney disease; M25.462 Effusion, left knee; R94.31 Abnormal electrocardiogram [ECG] [EKG]
CPT/HCPCS: 36415; 73700; 82040; 82565; 85014; 85018; 93005

== ENCOUNTER 2025-07-15 12:06 | Outpatient (CLI) | payer OTHER, SELFPAY ==
--- OUTSIDE RECORDS SUMMARY | 2025-07-15 12:59 | XMS_ITS | Clinical Summary ---
Author Organization [facility] [address] [facility] lto Address [address] [place] [address] Care Team Providers Care Strike Planning Applications Name Role Phone Forrest Frazier MD Unavailable [phone] Perry Cadena MD Primary Care Provider [phone] Allergies No known active allergies Medications multivitamin capsuleIndicati ons:Vitamin Deficiency Prevention Take 1 capsule by mouth every morning Active acetaminophen 500 mg capsuleIndicati ons:Pain Take 2 capsules (1,000 mg total) by mouth every 6 (six) hours 100 tablet 4 Active methocarbamoL (ROBAXIN) 750 mg tabletIndicatio ns:Muscle Spasm Take 1 tablet (750 mg total) by mouth 3 (three) times a day 90 tablet 4 Active senna-docusate (PERICOLACE) 8.6-50 mgIndications:c onstipation Take 1 tablet by mouth 2 (two) times a day 60 tablet 4 Active Additional Information Patient taking differently:1 tablet oralAs needed, constipation, Indications: constipation, Reported on 09/24/2024 amLODIPine (NORVASC) 10 mg tabletIndicatio ns:hypertension Take 1 tablet (10 mg total) by mouth daily 90 tablet 3 5 10/22/19 26 Active atorvastatin (LIPITOR) 10 mg tabletIndicatio ns:hyperlipidem ia Take 1 tablet (10 mg total) by mouth daily 90 tablet 3 5 Active hydroCHLOROthia zide (HYDRODIURIL) 25 mg tabletIndicatio ns:Edema Take 1 tablet (25 mg total) by mouth daily 90 tablet 3 5 10/22/19 26 Active Active Problems Problem Noted Date Diagnosed Date Stage 3a chronic kidney disease 09/24/2024 Assessment & Plan (09/24/2024 12:53 PM EVENT COORDINATOR): Monitor cmp Has been stable Consider switching [...] Gfr as above, cr and bun at [facility] baseline ckd stage 3 Medicare annual wellness [...] Plan (05/19/2024 9:04 AM CDT): Released by orhtopedics COntinue f/u with therapy and HEP. Chronic [...] 03/23/2021 Assessment & Plan (09/24/2024 12:30 PM EVENT COORDINATOR): Wt Readings from Last 3 Encounters: 09/24/24 [...] 03/23/2021 Assessment & Plan (09/24/2024 12:46 PM EVENT COORDINATOR): Hx of ETOH Assessment & Plan (03/23/2021 1:20 PM CDT): Awaiting results from [facility]. Reviewed d/c summary brought by dtr [facility]. Has stopped ETOH intake. Has improved diet greatly. [facility] doing shopping. Pain 1/10 at worst now. Great improvement. Osteoarthritis of knee 02/15/2020 Overview (02/15/2020): Added automatically from request for surgery [id number] Assessment & Plan (09/24/2024 12:53 PM EVENT COORDINATOR): Tylenol/ ibuprofen prn, follow up ortho Referral placed Assessment & Plan (04/28/2020 9:03 AM CDT): R knee replacement 02/2020. Doing PT exercises as instructed. Cannot tell any decrease in pain as of yet. Has f/u appt w/Dr Oseguera 05/13/20 at [facility]. Colonoscopy refused 10/29/2019 Assessment & Plan (10/29/2019 11:06 AM EVENT COORDINATOR): Refuses colonoscopy. Agreeable to cologuard. Mixed hyperlipidemia 10/28/2019 Assessment & Plan (09/24/2024 12:45 PM EVENT COORDINATOR): Lab Results Component Value Date CHOL 196 [...] & Plan (03/23/2021 1:17 PM CDT): 04/09/19 LU=498 HDL=65 TG=86 LDL=97 TC/HDL=2.8 10/29/19 BU=640 HDL=50 PP=867 LDL=75 TC/HDL=3.0 10/27/20 TU=927 HDL=69 CM=899 LDL=98 TC/HDL=3.0 Atorvastatin 10mg temporarily on hold d/t pancreatitis & fatty liver found while at [facility] ([facility]). dtr will resume his atorvastatin if hepatic functions WNL. Will recheck lipid panel at next appt (physical) Assessment & Plan (10/31/2020 8:57 AM EVENT COORDINATOR): 04/09/19 MH=130 HDL=65 TG=86 LDL=97 TC/HDL=2.8 10/29/19 PU=296 HDL=50 XO=628 LDL=75 TC/HDL=3.0 GLU=89 10/27/20 DU=654 HDL=69 KQ=659 LDL=98 TC/HDL=3.0 Reviewed past lipid panels. LDL [...] flags. Assessment & Plan (10/29/2019 11:05 AM EVENT COORDINATOR): 04/09/19 PU=525 HDL=65 TG=86 LDL=97 TC/HDL=2.8 10/29/19 MM=678 HDL=50 OY=517 LDL=75 TC/HDL=3.0 GLU=89 Copy of results as [...] 10/28/2019 Assessment & Plan (09/24/2024 12:30 PM EVENT COORDINATOR): BP Readings from Last 3 Encounters: 09/24/24 128/80 10/24/24 131/80 05/19/24 136/86 Vitals BP 128/80 (BP Location: Left arm, Patient Position: Sitting) Pulse 65 Resp 16 Ht 177.8 cm (5' 10) Wt 104.3 kg (230 lb) SpO2 98% [...] results). Assessment & Plan (10/31/2020 8:57 AM EVENT COORDINATOR): The blood pressure is under good control. [...] stress. Assessment & Plan (10/29/2019 11:05 AM EVENT COORDINATOR): No changes at this time. Does not [...] Ortho. Assessment & Plan (10/29/2019 11:03 AM EVENT COORDINATOR): Sees Dr Steward yearly for knee injections. Reports R knee [id number]. Declines knee replacements. Takes aleve as needed. Resolved Problems Problem Noted Date Diagnosed Date Resolved Date Class 1 obesity due to exces s calories with serious comorbidity and body mass index (BMI) of 33.0 to 33.9 in adult 05/19/2024 09/24/2024 Assessment & Plan (05/19/2024 9:04 AM CDT): Encourage 150min/week aerobic exercise. Healthy food chcoies. Obesity (BMI 30.0-34.9) 05/19/202405/2025 Assessment & Plan (05/19/2024 9:05 AM CDT): [...] 03/23/20 Assessment & Plan (10/31/2020 8:45 AM EVENT COORDINATOR): Reviewed need to lose weight, reviewed health benefits. Reviewed recommendations for daily intake & activity 20-30 minutes/day. Discussed healthy diet and importance of regular physical activity. BMI 30.0-30.9,adult 04/28/2020 10/31/19 21 Assessment & Plan (04/28/2020 9:01 AM CDT): [...] 04/27/2020 Assessment & Plan (10/29/2019 11:06 AM EVENT COORDINATOR): -reviewed screening guidelines: no family history of [...] 10/29/201910/31 Assessment & Plan (10/29/2019 11:06 AM EVENT COORDINATOR): Refuses colonoscopy; aware that it is gold standard for CRC screening. Agreeable to cologuard. Aware that cologuard kit will be mailed with directions. To call if no results rec'd 1-2 weeks after kit mailed back for completion of test. BMI 33.0-33.9,adult 10/29/2019 04/28/20 Assessment & Plan (10/29/2019 10:34 AM EVENT COORDINATOR): Reviewed need to lose weight, reviewed health [...] materials from doctor or pharmacy Never 04/11/2024 C Utilities Answer Date Recorded In the past 12 months has th e electric, gas, oil, or water company threatened to shut off services in your [...] or ex-partner? No 03/04/2024 Social Connection and Isolation Panel Answer Date Recorded In a typical week, how many times do you talk on the phone with family, friends, or neighbors? Three times a week 03/12/2024 How often do you get togethe r with friends or relatives? Three times a week 03/12/2024 How often do you attend chur or synagogue services? More than 4 times per year 03/12/2024 Do you belong to any clubs o r organizations such as denominational groups, unions, fraternal or athletic groups, or [...] staff should administer the PHQ-9) 0 09/24/2024 [facility] [place] of Occupat ional [facility] - Occupational Stress Questionnaire Answer Date Recorded [...] any time in the past 12 m [facility], were you homeless or living in a skilled nursing (including now)? No 03/12/2024 Personal Safety Answer Date Recorded Have you ever been in or are you currently in a harmful physical or emotional relationship or is someone making you feel afraid or unsafe? Denies 03/05/2024 Sex and Gender Information Value Date Recorded Sex Assigned at Not on file Legal Sex Male 1:36 AM EVENT COORDINATOR Gender Identity Not on file Sexual Orientation Not on file Obstetrics History Last Filed Vital Signs Vital Sign Reading Time Taken Comments Blood Pressure 128/80 09/24/2024 12:23 PM EVENT COORDINATOR Pulse 65 09/24/2024 12:23 PM EVENT COORDINATOR Temperature 36.7 C (98.1 F) 05/19/2024 8:39 AM CDT Respiratory Rate 16 09/24/2024 12:23 PM EVENT COORDINATOR Oxygen Saturation 98% 09/24/2024 12:23 PM EVENT COORDINATOR Inhaled Oxygen Concentration - - Weight 104.3 kg (230 lb) 09/24/2024 12:23 PM EVENT COORDINATOR Height 177.8 cm (5' 10) 09/24/2024 12:23 PM EVENT COORDINATOR Body Mass Index 33 09/24/2024 12:23 PM EVENT COORDINATOR Plan of Treatment Health Maintenance Due Date Last Done Comments Hepatitis C Screening 1945 DTaP/Tdap/Td Vaccine (1 - Tdap) 1957 Hepatitis B Screening 1964 Covid-19 Vaccine (2023-2 5 season) 2025 06/05/2024, 07/04/2023, 06/07/2022, Additional history exists Influenza Vaccine (#1) 2025 , 07/04/2023, 06/07/2022, Additional history exists Well Visit 65+ 05/19/2025 05/19/2024, 05/21/2023 Depression Screening 09/24/2025 09/24/2024, 05/19/2024, 11/26/2023, Additional history exists Fall Risk Assessment 09/24/2025 09/24/2024, 05/19/2024, 03/11/2024, Additional history exists Zoster Vaccine Completed 03/28/2021, 09/18, 06/29/2011 Pneumococcal vaccine 65+ Completed 024, 04/09/2019, 10/08/2017, Additional history exists Colon Cancer Screening-DNA Stool Discontinued Goals Goal Patient Goal Type Associated Problems Recent Progress Patient-Stated? Author TOAN General Goal - Patient establishes care with [facility] ACO Care Management On track(2023 1:10 PM CDT) Trixie Burt, RN Note: Problem: Lack of [facility] communication Interventions: - Provide coordination between [facility] company and patient. - Ensure [facility] has appropriate referral and orders to establish care with patient. - Follow up with patient to ensure initial visit was completed by [facility] and that a [facility] plan has been started. -Pain [facility] Lourdes Elmore RN Note: Patient will establish a comfort-function goal and identify the pain level that will allow the patient to perform desired activities and achieve an acceptable quality of life. Medical Devices Implanted Type Area Dumping Machine Operator Device Identifier Shelf Expiration Date Model / Serial / Lot [employer] [id number] Persona 12mm Cruciate Retain Knee 8-11 Insert Articular Vivacit-E Latex Free - [id number] Implanted:Qty: 1 on 03/09/2020 by Crater Oseguera MD at [facility] Right: Knee [employer] [id number] 2 06/15/2023 [id number] / / [id number] [employer] [id number] Persona 2 Peg Knee Right H Baseplate Tibial Trabecular Metal - [id number] Implanted:Qty: 1 on 03/09/2020 by Carter Oseguera MD at [facility] Right: Knee [employer] [id number] 2 05/16/2029 [id number] / / [id number] [employer] [id number] Persona Cruciate Retaining Knee Right 9 Standard Component - [id number] Implanted:Qty: 1 on 03/09/2020 by Carter Oseguera MD at [facility] Right: Knee [employer] [id number] 2 11/13/2029 [id number] / / [id number] [place] [address] [facility] Advance Directives For more information, please contact: [phone] * Full Code (Latest Code Status on File) Date Activated Date Inactivated Comments 03/04/2024 8:27 PM 03/11/2024 4:18 PM * Full Code Date Activated Date Inactivated Comments 03/09/2020 6:13 PM 03/10/2020 4:08 PM Care Teams Strike Planning Applications Relationship Specialty Start Date End Date Forrest Frazier MD [address] [place] [address] PCP - Essence Attributed PCP 09/16/19 Perry Cadena MD [address] [place] [address] [place] [address] PCP - General Family Medicine 09/24/24
--- OUTSIDE RECORDS SUMMARY | 2025-07-15 12:59 | XMS_ITS | Clinical Summary ---
Author Organization [facility] [employer] Address [address] [place] [address] Care Team Providers Care Rubber Covering Machine Operator Name Role Phone Florentin Antony MD Primary Care Provider [phone] Source Comments [facility] [employer],non-owned Affiliates and Associated Physician Practices is amultiple site organization consisting of ambulatory clinics and hospital sitesin [place], [place]. This disclosure is being madepursuant to the Care Everywhere program and may not contain all information available regarding this patient. Last updated 18.[employer] Allergies No known active allergies Medications * Be aware that medications may not be up to date on this document. Alwaysverify current medications with the patient. atorvastatin (LIPITOR) 10 MG tablet Take 10 [...] at Not on file Legal Sex Male 6:33 PM CEMENT MASON HELPER Gender Identity Not on file Sexual Orientation Not on file Last Filed Vital Signs Vital Sign Reading Time Taken Comments Blood Pressure 140/82 09/13/2018 11:21 AM CEMENT MASON HELPER Pulse 89 09/13/2018 11:21 AM CEMENT MASON HELPER Temperature 37.2 C (99 F) 09/13/2018 11:21 AM CEMENT MASON HELPER Respiratory Rate - - Oxygen Saturation 96% 09/13/2018 11:21 AM CEMENT MASON HELPER Inhaled Oxygen Concentration - - Weight 110.7 kg (244 lb) 09/13/2018 11:21 AM CEMENT MASON HELPER Height 180.3 cm (5' 11) 09/13/2018 11:21 AM CEMENT MASON HELPER Body Mass Index 34.03 09/13/2018 11:21 AM CEMENT MASON HELPER Plan of Treatment Health Maintenance Due Date Last Done Comments DTAP/TDAP/TD VACCINES (1 - Tdap) 1964 PNEUMOCOCCAL VACCINE 50+ (1 of 1 - PCV) 1996 ZOSTER VACCINE (1 of 2) 1996 Respiratory Syncytial Virus (RSV) Vaccine Pt: or over 60 yrs (1 - 1-dose 75+ series) 2021 DEPRESSION SCREENING 09/16/2024 COVID-19 VACCINE (1 - 2023-2 5 season) 2025 INFLUENZA VACCINE (#1) 2025 8, 07/20/2016, 07/12/2015 HEPATITIS B VACCINE Aged Out No longe r eligible based on patient's age to complete this topic HIB VACCINE Aged Out No longer eligi ble based on patient's age to complete this topic HPV VACCINE Aged Out No longer eligi ble based on patient's age to complete this topic MENINGOCOCCAL (Group B) VACCINE SHARED DECISION-MAKING Aged Out No longer eligible based on patient's age to complete this topic MENINGOCOCCAL GROUPS A/C/Y/W VACCINE Aged Out No longer eligible b ased on patient's age to complete this topic Insurance [employer] [facility] Address: [facility] [id number] [place] [phone] Care Teams Rubber Covering Machine Operator Relationship Specialty Start Date End Date Florentin Antony MD PCP - General Internal Medicine 09/13/18
--- OUTSIDE RECORDS SUMMARY | 2025-07-15 12:59 | XMS_ITS | Clinical Summary ---
Author Organization [facility] Address [address] [address] Phone Care Team Providers Care Composite Mechanic Name Role Phone Forrets Frazier MD Primary Care Provider [phone] Allergies No known active allergies Medications aspirin [...] Lnp-s, Pf, 3 0 Mcg/0.3 Ml Dose ([employer]) 11/14/2020,10/17/2020 Influenza Vaccine greater than 3 yrs [...] 9:40 AM CDT Height 180.3 cm (5' 11) 04/09/2019 9:40 AM CDT Body Mass Index 34.03 04/09/2019 9:40 AM CDT Plan of Treatment Health Maintenance Due Date Last Done Comments Hepatitis C Virus (HCV) Screening 1945 TdaP Immunization 1945 Zoster Immunization (3 of 3) 12/10/2019 10/15/2019, 06/29/2011 Respiratory Syncytial Virus (RSV) Immunization (Adult) (1 - 1-dose 75+ series) 2021 Influenza Immunization (#1) 05/17/202506/16, 06/20/2020, 07/09/2019, Additional history exists SARS-COV-2 Immunization (2024- season) 2025 06/09/2021, 11/14/2020, 10/17/2020 Pneumococcal Immunization (50+ years) Completed 04/09/2019, 10/08/2017, 04/16/2009 Pneumococcal Immunization Combined Discontinued 04/09/2019, 10/08/2017, 04/16/2009 Hepatitis B Immunization Aged Out No longer eligible based on patient's age to complete this topic Human Papillomavirus (HPV) Immunization Aged Out No longer eligible based on patient's age to complete this topic Meningococcal Immunization (ACWY) Aged Out No longer eligible based on patient's age to complete this topic Rotavirus Immunization Aged Out No lo nger eligible based on patient's age to complete this topic Care Teams Composite Mechanic Relationship Specialty Start Date End Date Forrest Frazier MD [address] [place] [address] PCP - General Internal Medicine 03/06/21
[2025-07-15 13:02] LABS: Hematocrit 41.9 % (42.0-52.0); Hemoglobin 14.3 g/dL (14.0-18.0)
[2025-07-15 13:22] LABS: Albumin Level 4.8 g/dL (3.5-5.1); Estimated Glomerular Filt Rate 51
== END 2025-07-15 12:07 | disposition home or self-care (01) ==
PROVIDERS: PCP Family Medicine; Visit Provider Orthopaedic Surgery
DX: M17.12 Unilateral primary osteoarthritis, left knee (principal); N18.9 Chronic kidney disease, unspecified
CPT/HCPCS: 36415; 82040; 82565; 85014; 85018